=== PATIENT | female | born 1995 | race American Indian/Alaskan Native ===

== ENCOUNTER 2016-09-30 15:05 | Emergency (ER) | payer SELFPAY ==
[2016-09-30 15:24] VITALS: BP 135/91
--- NOTE | 2016-09-30 16:57 | Emergency Department Report ---
ED ENT HPI - General Chief complaint: Sore Throat Stated complaint: SORE THROAT/STUFFY NOSE Time Seen by Provider: 09/30/16 16:41 Source: patient Mode of arrival: Ambulatory Limitations: No Limitations - History of Present Illness Initial comments: PT c/o sore throat x a couple of days. PT can not remember exact onset. PT states 2 weeks ago, she went to [place] and was told she may have URI or the Flu. PT states she was there all day and never seen. PT states she was having congestion, fevers, and cough at that time. PT states she is still congested and now she is having sore throat. PT denies f/c/n/v complaint: sore throat -: Gradual, days(s) Location: throat Quality: constant Consistency: constant Worsens with: swallowing, eating Associated Symptoms: pain with swallowing, sore throat, rhinorrhea. denies: fever, cough - Related Data Previous Rx's Medication Instructions Recorded Last Taken Type Cetirizine HCl [ZyrTEC] 10 mg PO DAILY #14 capsule 09/30/16 Unknown Rx Ibuprofen [Motrin] 600 mg PO Q8H PRN #15 tablet 09/30/16 Unknown Rx ED Dental HPI - General Chief complaint: Sore Throat Stated complaint: SORE THROAT/STUFFY NOSE Time Seen by Provider: 09/30/16 16:41 Source: patient Mode of arrival: Ambulatory Limitations: No Limitations - Related Data Previous Rx's Medication Instructions Recorded Last Taken Type Cetirizine HCl [ZyrTEC] 10 mg PO DAILY #14 capsule 09/30/16 Unknown Rx Ibuprofen [Motrin] 600 mg PO Q8H PRN #15 tablet 09/30/16 Unknown Rx ED Review of Systems ROS: Stated complaint: SORE THROAT/STUFFY NOSE Other details as noted in HPI Comment: All other systems reviewed and negative Constitutional: denies: chills, fever ENT: throat pain Respiratory: denies: cough Gastrointestinal: denies: abdominal pain, nausea, vomiting Genitourinary: abnormal menses (pt states she is late) Musculoskeletal: denies: back pain ED Past Medical Hx - Past Medical History Previous Medical History?: No - Surgical History Past Surgical History?: No - Social History Smoking Status: Current Every Day Smoker Substance Use Type: Alcohol - Medications Home Medications: Home Medications Medication Instructions Recorded Confirmed Last Taken Type Cetirizine HCl [ZyrTEC] 10 mg PO DAILY #14 capsule 09/30/16 Unknown Rx Ibuprofen [Motrin] 600 mg PO Q8H PRN #15 tablet 09/30/16 Unknown Rx ED Physical Exam - General Limitations: No Limitations General appearance: alert, in no apparent distress, appears intoxicated - Head Head exam: Present: atraumatic, normocephalic, normal inspection - Eye Eye exam: Present: normal appearance, PERRL, EOMI. Absent: conjunctival injection - ENT ENT exam: Present: normal exam, normal orophraynx, TM's normal bilaterally, normal external ear exam - Neck Neck exam: Present: normal inspection. Absent: tenderness, lymphadenopathy - Respiratory Respiratory exam: Present: normal lung sounds bilaterally. Absent: respiratory distress, wheezes - Cardiovascular Cardiovascular Exam: Present: regular rate, normal rhythm, normal heart sounds - Extremities Exam Extremities exam: Present: normal inspection, full ROM - Back Exam Back exam: Present: normal inspection, full ROM. Absent: tenderness, CVA tenderness (R), CVA tenderness (L), muscle spasm, paraspinal tenderness, vertebral tenderness - Neurological Exam Neurological exam: Present: alert, oriented X3, normal gait - Psychiatric Psychiatric exam: Present: normal affect, normal mood - Skin Skin exam: Present: warm, dry, intact, normal color ED Course Vital Signs 09/30/16 15:21 Temperature 98.3 F Pulse Rate 85 Respiratory 16 Rate Blood Pressure 135/91 O2 Sat by Pulse 100 Oximetry - Reevaluation(s) Reevaluation #1: 09/30/16 17:02 PT aware of plan of care. Reevaluation #2: 09/30/16 17:36 PT aware of lab results and plan of care. PT has no questions at this time. - Pulse Oximetry Interpretation Digit-Finger Initial Pulse Oximetry Readin Actions Taken: none ED Medical Decision Making - Lab Data Lab Results 09/30/16 Range/Units 16:56 Urine HCG, Qual Negative (Negative) - Differential Diagnosis strep throat, uri, allergic rhinitis Critical care attestation.: If time is entered above; I have spent that time in minutes in the direct care of this critically ill patient, excluding procedure time. ED Disposition Clinical Impression: Amenorrhea, Nasal congestion Pharyngitis Qualifiers: Pharyngitis/tonsillitis etiology: unspecified etiology Qualified Code(s): J02.9 - Acute pharyngitis, unspecified Disposition: DISCHARGED TO HOME OR SELFCARE Is pt being admited?: No Does the pt Need Aspirin: No Condition: Stable Instructions: Pharyngitis (ED) Additional Instructions: Recheck your BP on follow up Prescriptions: Cetirizine HCl [ZyrTEC] 10 mg PO DAILY #14 capsule Ibuprofen [Motrin] 600 mg PO Q8H PRN #15 tablet PRN Reason: Pain Referrals: PRIMARY CAREMD [Primary Care Provider] - 3-5 Days CHAPINCITO DUQUE MD [Staff Physician] - 3-5 Days [facility] [Outside] - 3-5 Days Time of Disposition: 17:41
== END 2016-09-30 17:49 | disposition home or self-care (01) ==
LOC: ED 15:05
DX: N91.2 Amenorrhea, unspecified (principal); J02.9 Acute pharyngitis, unspecified; F17.200 Nicotine dependence, unspecified, uncomplicated
CPT/HCPCS: 81025; 87116; 87430; 99283